=== PATIENT | male | born 1990 | race Caucasian/White ===

== ENCOUNTER 2019-08-10 08:32 | Observation (INO) | payer MEDICAID, OTHER ==
[~2019-08-10] VITALS: Ht 180.3 cm; Wt 153.5 kg
[2019-08-10] MEDS ORDERED: NS 1,000 ML IV SCH (09:00)
[2019-08-10] MEDS ORDERED: PIPERACILLIN/TAZOBACTAM SOD 3.375 GM in D5W MINI-BAG PLUS 50 ML IV ONE (09:00)
--- NOTE | 2019-08-10 09:38 | REP ---
Clinical: Right upper quadrant pain. Possible cholecystitis. Technique: Real time jordan scale ultrasound examination using curved array transducer. Note: Examination is markedly limited due to body habitus and associated technical factors. Findings: The liver suggests fatty infiltration without obvious focal hepatic lesion identified. Pancreas is incompletely evaluated but visualized portions appear grossly normal. Gallbladder demonstrates cholelithiasis and mild wall thickening cannot be excluded. Evaluation is severely limited. No obvious biliary ductal dilatation is appreciated and the common bile duct is poorly identified. The right kidney is normal in reniform shape without hydronephrosis and measures 10.4 x 6.6 x 6.8 cm. No obvious ascites in the visualized right upper quadrant. Impression: Extremely limited examination demonstrating cholelithiasis and hepatic steatosis. Acute cholecystitis cannot be excluded based on current examination. Electronically Signed by Nelson Kim MD 08/10/2019 09:30 A
[2019-08-10 09:56] LABS: BASO % 0.3 % (0.0-1.0); EOS # 0.1 10^3/uL (0.0-0.5); EOS % 0.7 % (0.0-3.0); HEMATOCRIT 48.5 % (42.0-52.0); HEMOGLOBIN 15.7 g/dl (13.5-17.5); LYMPH # 1.8 10^3/uL (1.5-5.0); LYMPH % 15.9 % (24.0-44.0); MEAN CORPUSCULAR HEMOGLOBIN 28.1 pg (27.0-33.0); MEAN CORPUSCULAR HGB CONC 32.4 g/dl (32.0-36.5); MEAN CORPUSCULAR VOLUME 86.9 fl (80.0-96.0); MONO # 1.2 10^3/uL (0.0-0.8); MONO % 10.8 % (0.0-5.0); NEUTROPHILS # 8.3 10^3/uL (1.5-8.5); NEUTROPHILS % 71.8 % (36.0-66.0); PLATELET COUNT, AUTOMATED 297 10^3/uL (150-450); RED BLOOD COUNT 5.58 10^6/uL (4.30-6.10); WHITE BLOOD COUNT 11.5 10^3/uL (4.0-10.0)
[2019-08-10 10:26] LABS: ALBUMIN 3.7 GM/DL (3.2-5.2); BILIRUBIN,DIRECT 0.3 MG/DL (0.0-0.2); BILIRUBIN,TOTAL 0.6 MG/DL (0.2-1.0); TOTAL PROTEIN 7.3 GM/DL (6.4-8.2)
[2019-08-10] MEDS ORDERED: MORPHINE 2 MG/ML 1ML VIAL (J2270) IV PRN ×2 (10:30)
[2019-08-10] MEDS ORDERED: PERCOCET 5MG/325MG TAB PO PRN (10:30)
[2019-08-10] MEDS ORDERED: ONDANSETRON 4MG/2ML VIAL (J2405) IV PRN (10:30)
[2019-08-10 11:40] VITALS: BP 162/89
[2019-08-10] MEDS: KETOROLAC 30 MG/ML VIAL (J1885) IV SCH ×4 (12:15→22:57)
[2019-08-10] MEDS: PANTOPRAZOLE 40MG INJ (PROTONIX) (C9113) IV SCH (12:18)
[2019-08-10] MEDS: NS 1,000 ML IV SCH ×2 (12:18→18:29)
[2019-08-10 13:51] VITALS: BP 159/92
[2019-08-10] MEDS: PIPERACILLIN/TAZOBACTAM SOD 3.375 GM in D5W MINI-BAG PLUS 50 ML IV SCH ×2 (15:01→22:56)
[2019-08-10] MEDS: NICOTINE 21MG/24HR 1 EA TRANSDERMAL TD SCH (15:02)
[2019-08-10 18:00] VITALS: BP 155/87
[2019-08-10 22:00] VITALS: BP 149/82
[2019-08-11 02:00] VITALS: BP 148/82
[2019-08-11] MEDS: NS 1,000 ML IV SCH (02:41)
[2019-08-11] MEDS: PIPERACILLIN/TAZOBACTAM SOD 3.375 GM in D5W MINI-BAG PLUS 50 ML IV SCH ×2 (04:32→10:01)
[2019-08-11] MEDS: KETOROLAC 30 MG/ML VIAL (J1885) IV SCH ×2 (04:32→10:01)
[2019-08-11 06:00] VITALS: BP 141/91
[2019-08-11 06:56] LABS: HEMATOCRIT 45.5 % (42.0-52.0); HEMOGLOBIN 14.4 g/dl (13.5-17.5); MEAN CORPUSCULAR HEMOGLOBIN 27.8 pg (27.0-33.0); MEAN CORPUSCULAR HGB CONC 31.6 g/dl (32.0-36.5); MEAN CORPUSCULAR VOLUME 87.8 fl (80.0-96.0); PLATELET COUNT, AUTOMATED 276 10^3/uL (150-450); RED BLOOD COUNT 5.18 10^6/uL (4.30-6.10); WHITE BLOOD COUNT 7.7 10^3/uL (4.0-10.0)
[2019-08-11 07:20] LABS: ALBUMIN 3.3 GM/DL (3.2-5.2); ALT/SGPT 83 U/L (12-78); BILIRUBIN,TOTAL 0.8 MG/DL (0.2-1.0); BLOOD UREA NITROGEN 8 MG/DL (7-18); CALCIUM LEVEL 8.4 MG/DL (8.5-10.1); CARBON DIOXIDE LEVEL 28 MEQ/L (21-32); CHLORIDE LEVEL 108 MEQ/L (98-107); CREATININE FOR GFR 0.93 MG/DL (0.70-1.30); GLOMERULAR FILTRATION RATE > 60.0 (>60); GLUCOSE, FASTING 83 MG/DL (70-100); POTASSIUM SERUM 3.7 MEQ/L (3.5-5.1); SODIUM LEVEL 141 MEQ/L (136-145); TOTAL PROTEIN 7.2 GM/DL (6.4-8.2)
[2019-08-11] MEDS: PANTOPRAZOLE 40MG INJ (PROTONIX) (C9113) IV SCH (08:25)
[2019-08-11] MEDS: NICOTINE 21MG/24HR 1 EA TRANSDERMAL TD SCH (08:26)
[2019-08-11 14:00] VITALS: BP 148/80
[2019-08-11] MEDS ORDERED: AUGM500T34 PO (15:56)
[2019-08-11] MEDS ORDERED: PERCOCET PO (15:57)
[2019-08-12] MEDS ORDERED: INFLUENZA QUADRIVALENT PF VACCINE 0.5ML SYRINGE (90686) IM ONE (09:00)
== END 2019-08-11 16:19 | disposition home or self-care (01) ==
LOC: M ED 08:32 → M ED INP 08:33 → M MSPAV 11:36
PROVIDERS: ADMIT Surgery; ATTEND Surgery
DX: K81.0 Acute cholecystitis (principal); J45.909 Unspecified asthma, uncomplicated; F17.210 Nicotine dependence, cigarettes, uncomplicated
CPT/HCPCS: 36415; 76705; 80053; 80076; 83690; 85025; 85027; 87040; 96361; 96365; 96366; 96375; 96376; 99284; C9113; J1885; J2543

== ENCOUNTER 2019-09-06 05:56 | Day surgery (SDC) | payer OTHER ==
[2019-09-06] VITALS (11 sets, daily range): BP systolic 140–220; BP diastolic 60–118
[~2019-09-06] VITALS: Ht 162.6 cm; Wt 153.4 kg
[~2019-09-06 05:56] MED LIST: AUGM500T34 PO; PERCOCET PO; VENTAER INH
[2019-09-06] MEDS ORDERED: ceFAZolin SOD 2 GM in IV 1 EA IV ONE (06:00)
[2019-09-06] MEDS ORDERED: ceFAZolin 2 GM/D5W 50 ML IV BAG (J0690 PER 500MG) As Ordered ONE (06:24)
[2019-09-06] MEDS ORDERED: LR 1,000 ML IV ONE (06:45)
[2019-09-06] MEDS ORDERED: BUPIVACAINE/EPIN 0.25% 30 ML VIAL As Ordered ONE (07:10)
[2019-09-06] MEDS ORDERED: CONRAY-60 60% 50ML VIAL (Q9961) As Ordered ONE (07:10)
[2019-09-06] MEDS ORDERED: GLUCAGON FOR INJ 1 MG VIAL (J1610) As Ordered ONE (07:12)
[2019-09-06] MEDS ORDERED: PROPOFOL 200 MG/20 ML VIAL As Ordered ONE (07:16)
[2019-09-06] MEDS ORDERED: ROCURONIUM BROMIDE 50 MG/5 ML VIAL As Ordered ONE ×2 (07:16→08:00)
[2019-09-06] MEDS ORDERED: SUCCINYLCHOLINE 100 MG/5 ML SYRINGE (J0330) As Ordered ONE (07:16)
[2019-09-06] MEDS ORDERED: LIDOCAINE 2% INJ 100 MG/5 ML SDV (FOR ANES.) As Ordered ONE (07:16)
[2019-09-06] MEDS ORDERED: MIDAZOLAM INJ 2 MG/2 ML VIAL (J2250) As Ordered ONE (07:16)
[2019-09-06] MEDS ORDERED: ONDANSETRON 4MG/2ML VIAL (J2405) As Ordered ONE (07:17)
[2019-09-06] MEDS ORDERED: dexameTHASONE 4 MG/ML 1ML VIAL (J1100) As Ordered ONE (07:17)
[2019-09-06] MEDS ORDERED: fentaNYL 100 MCG/2 ML INJECTION (J3010) As Ordered ONE ×2 (07:17→07:48)
[2019-09-06] MEDS ORDERED: ACETAMINOPHEN 1000MG 100ML IV BTL (OFIRMEV) (J0131 PER 10MG) As Ordered ONE (08:06)
[2019-09-06] MEDS ORDERED: SUGAMMADEX SODIUM 500 MG/5 ML VIAL (BRIDION) As Ordered ONE (08:07)
[2019-09-06] MEDS ORDERED: HYDROmorphone HCL 2 MG/ML 1ML VIAL (J1170) As Ordered ONE (09:07)
[2019-09-06] MEDS: NS 1,000 ML IV SCH ×2 (09:45→17:45)
[2019-09-06] MEDS ORDERED: NORCO, ANEXSIA 5/325MG TABLET (HYDROcodone/ACETAMINOPHEN) PO PRN ×2 (09:45)
[2019-09-06] MEDS ORDERED: MORPHINE 2 MG/ML 1ML VIAL (J2270) IV PRN (09:45)
--- NOTE | 2019-09-06 10:04 | RO ---
DATE OF PROCEDURE: 09/06/2019 PREOPERATIVE DIAGNOSIS: Acute cholecystitis. POSTOPERATIVE DIAGNOSIS: Acute cholecystitis. PROCEDURE: Laparoscopic cholecystectomy. SURGEON: Kartik Moreno MD DROP WIRE OPERATOR: Herbie Mix DO ANESTHESIA: General endotracheal anesthesia. ESTIMATED BLOOD LOSS: Minimal. FLUIDS: Crystalloid. BRIEF PROCEDURE SUMMARY: The patient was brought to the operating room and was given general anesthesia. After adequate anesthesia and preoperative antibiotics were given, the patient was prepped and draped in the usual sterile fashion. Next, a supraumbilical incision was made with skin knife. Blunt dissection was carried down to fascia. Fascia was entered with a Veress needle, insufflated to 15 mm of pressure. A dilating 10 mm trocar was placed at this time and under direct visualization an epigastric and two lateral trocars were placed. Given his morbid obesity, he did need to be placed in a significantly head-up left side down position and eventually I was able to see the mildly contracted gallbladder with thickened molina and it was grasped, retracted superiorly and then dissection of the peritoneum off the neck of the gallbladder was performed without too much difficulty. There were some minimal inflammatory changes but overall a good window behind the neck of the gallbladder was created. The cystic duct was relatively small in size and the cystic artery could be seen. There was a large cystic duct node present and once this was immobilized and a good window behind the neck of the gallbladder a critical view of safety was obtained with dissection up on the cystic plate in this area. The cystic artery was clipped proximally and distally and transected. There was some mild oozing from the cystic duct node that was controlled with a clip as well. Next, the cystic duct was clipped proximally and distally and transected. The gallbladder then was removed from the gallbladder bed all way up to the dome, and up at the dome there was some thickening in the liver bed and the plane between the two start to get very difficult. Thus, I started a top down approach just at the very end and there was fibrosis between the gallbladder and the liver bed in this area and what I felt was probably some stones just underneath the surface. My concern was that the patient probably had perforated the dome of the gallbladder and there may be a small abscess cavity under this. In any case, after dissecting further and slowly circumferentially after transecting what I thought was the dome of the gallbladder, possibly the connection between the abscess cavity and the dome, the stones came out and there were approximately three facet stones that came out. This was irrigated and the irrigation was clear. No further stones, and then bile started coming out of this opening that was very close to the liver edge, approximately an inch and a half from the liver edge itself, possibly up to 2 inches at most. But in any case this was irrigated again. No further stones were obtained and I was able to palpate the area and it did not reveal anymore further stones but there was some bile still coming out. Because of this Dr. Mix scrubbed in to give me a hand at this point and our concern was one of two possibilities, possibly a Duct of Luschka but it did not make sense with the stones that were within this cavity. The other was possibly an abscess that eroded into a small bile duct given that there was not a lot of bile coming out but it did come out as fresh looking bile. Thus, two stitches were used with #2-0 Vicryl to approximate the edges of this opening and I did not see any further bile leak despite pressing on the undersurface of this. Then, I placed some Tisseel over the top of this and left a 19 Eric-Perera drain in the right side of the abdomen and brought the gallbladder out in Endo Catch bag. The gallbladder itself was relatively large, so the umbilical incision needed be enlarged for this and this was closed first with #0 Vicryl in the fascial layer and then using a Jasen-Palacio to supplement the closure at the site I used that as a mjqjim-ed-dyhmw as well. Good hemostasis was achieved and all incisions were closed with #4-0 Vicryl. Steri-Strips and a dry sterile dressing was applied. The patient was awakened from his anesthesia, brought to the recovery room awake, alert and hemodynamically stable. Sponge and needle counts correct times two.
[2019-09-06] MEDS ORDERED: MORPHINE 10 MG/ML 1ML VIAL (J2270) As Ordered ONE (10:08)
[2019-09-06] MEDS ORDERED: PERCOCET 5MG/325MG TAB As Ordered ONE (10:08)
[2019-09-06] MEDS: PERCOCET 5MG/325MG TAB PO PRN ×2 (10:10→10:40)
[2019-09-06] MEDS: MORPHINE 10 MG/ML 1ML VIAL (J2270) IV PRN ×4 (10:15→10:30)
[2019-09-06] MEDS ORDERED: METOCLOPRAMIDE INJ 10MG/2ML VIAL (J2765) IV PRN (10:15)
[2019-09-06] MEDS ORDERED: ONDANSETRON 4MG/2ML VIAL (J2405) IV PRN (10:15)
[2019-09-06] MEDS ORDERED: LR 1,000 ML IV SCH (10:15)
[2019-09-06] MEDS: hydrALAZINE INJ 20 MG/ML VIAL IV SCH ×2 (10:30→10:40)
[2019-09-06] MEDS ORDERED: hydrALAZINE INJ 20 MG/ML VIAL As Ordered ONE (10:30)
[2019-09-06] MEDS: LABETALOL HCL 100 MG/20 ML VIAL IV SCH ×5 (10:50→11:20)
[2019-09-06] MEDS ORDERED: LABETALOL HCL 100 MG/20 ML VIAL As Ordered ONE (10:51)
[2019-09-06] MEDS: fentaNYL 100 MCG/2 ML INJECTION (J3010) IV PRN ×4 (10:55→11:10)
[2019-09-06] MEDS ORDERED: LABETALOL 100 MG TAB PO SCH ×2 (14:00→16:15)
[2019-09-06] MEDS ORDERED: NITROGLYCERIN 2% OINT 1 GM *U/D* PKT TOP STA (15:44)
[2019-09-06] MEDS ORDERED: PILL CUTTER 1 EACH XX PRN (16:15)
[2019-09-06] MEDS: PANTOPRAZOLE 40MG TAB (PROTONIX) PO SCH (16:44)
[2019-09-06] MEDS: MORPHINE 30 MG TAB **MSIR PO SCH ×2 (16:55→18:00)
[2019-09-06] MEDS: PIPERACILLIN/TAZOBACTAM SOD 3.375 GM in D5W MINI-BAG PLUS 50 ML IV SCH ×2 (16:56→21:22)
[2019-09-06] MEDS ORDERED: **hydrALAZINE HCL** 25 MG TAB PO SCH (19:00)
--- NOTE | 2019-09-06 19:43 | HPEPDOC ---
General Date of Admission 09/06/2019 Date of Service: Sep 06, 2019 Attending Physician: MADHAVI CHAPPELL MD Chief Complaint The patient is a 28-year-old male admitted with a reason for visit of Gallstones. Source: Patient Exam Limitations: No limitations Timing/Duration: Day(s) Severity: Moderate Associated Symptoms: Other (abdominal pain) History of Present Illness 28 yo morbidly obese man with a known history of hypertension not on medications with poor medical compliance who was admitted by surgery for cholecystectomy and medicine was consulted post op of medical management. On meeting Mr. Palacio, he reports 4/10 pain and has already ambulated and feels well, sitting at bedside and breathing comfortably on room air. He reports having previously been told that he has hypertension was placed on hydralazine with plan to follow up with a PCP but he never followed up. His BPs per his memory have ranged from SBP 150-200s. He reports no history of chest pain, palpitations, headaches, blurry vision, asymmetric weakness. He otherwise had a lap tawnya today that was uneventful except for critical hypertension for which he received hydralazine and labetalol with good effect. Post op he has done well and arrival to the floor he was hypertensive to the 180s without any complaints. I gave 50mg of labetalol PO with no effect and on recheck he is now in the low 200s SBP. I am now increasing his labetalol to 100 Q6H and hydralazine 25Q6 as well staggered and transferring him to the ICU with telemetry. He otherwise reports that his pain remains well controlled and on smoking cessation counseling agreed to a patch. He otherwise remains on zosyn per surgery team, s/p pre-surgery ancef. Home Medications Scheduled PRN Albuterol Sulfate (Ventolin Hfa) 18 Gm Hfa.aer.ad, 2 PUFF INH Q4-6HP PRN for wheezing, (Reported) Oxycodone/Acetaminophen (Oxycodone-Acetaminophen 5-325) 1 Each Tablet, 1 TAB PO Q4H PRN for MILD/MODERATE PAIN (PS 1-7) Allergies Coded Allergies: No Known Drug Allergies (Verified Allergy, Unknown, 09/06/19) Past Medical History Medical History Hypertension Surgical History Now s/p lap tawnya Family History Significant Family History: No pertinent family hx Social History * Smoker: current smoker Alcohol: occationally Drugs: denies Recent Travel/Sick Contacts: Denies: Recent travel, Recent sick contacts Psychosocial History: No pertinent psych hx Recently relocated back to [facility] from [place]. A-FIB/CHADSVASC A-FIB History Current/History of A-Fib/PAF?: No Current PO Anticoag Therapy: No Age/Risk Factor Scoring CHADSVASC: CHADSVASC Response (Comments) Value Age Risk Factor Age < 65 years old 0 Gender Risk Factor Male 0 Hx of CHF No 0 Hx of HTN Yes 1 Hx of Stroke/TIA/or VTE No 0 Hx of Diabetes No 0 Hx of Vascular Disease No 0 Total 1 Treatment Treatment ordered: NONE Reason Anticoagulant not given: Not indicated/Eswzy5izef Review of Systems Constitutional: Denies: Chills, Fever, Night Sweats Eyes: Denies: Pain, Vision change ENT: Denies: Head Aches, Ear Pain, Dysphagia Skin: Denies: Rash, Lesions, Breakdown Pulmonary: Denies: Dyspnea, Cough Cardiovascular: Denies: Chest Pain, Palpitations, Orthopnea, Paroxysmal Noc. Dyspnea, Lt Headedness Gastrointestinal: Denies: Nausea, Vomiting, Abdominal Pain, Diarrhea Genitourinary: Denies: Dysuria, Frequency, Incontinence, Retention Hematologic: Denies: Bruising, Bleeding Excessively Endocrine: Denies: Polydipsia, Polyphagia, Polyuria, Heat Intolerance, Cold Int olerance, Other Endocrine Sx Musculoskeletal: Denies: Neck Pain, Back Pain, Joint Pain, Muscle Pain, Spasms Neurological: Denies: Weakness, Numbness, Change in speech, Confusion Psych: Reports: Mood Normal; Denies: Depression, Memory Issues Physical Examination General Exam: Positive: Alert, No Acute Distress Eye Exam: Positive: PERRLA, Conjunctiva & lids normal, EOMI; Negative: Sclera icteric ENT Exam: Positive: Atraumatic, Mucous membr. moist/pink, Pharynx Normal Neck Exam: Positive: Supple; Negative: JVD, thyromegaly Chest Exam: Positive: Clear to auscultation, Normal air movement Heart Exam: Positive: Rate Normal, Regular Rhythm, Normal S1, Normal S2; Negative: Murmurs, Rubs Abdomen Exam: Positive: Normal bowel sounds, Soft, Tenderness (mild abdominal tenderness to palpation but otherwise benign exam postop); Negative: Hepatospenomegaly Extremity Exam: Positive: Normal pulses; Negative: Clubbing, Cyanosis, Edema Skin Exam: Positive: Nl turgor and temperature; Negative: Breakdown, Lesion Neuro Exam: Positive: Normal Gait, Normal Speech, Cranial Nerves 3-12 NL, Reflexes 2+ Psych Exam: Positive: Mental status NL, Mood NL, Oriented x 3 Vital Signs Vital Signs Date Time Temp Pulse Resp B/P (MAP) Pulse Ox O2 Delivery O2 Flow Rate FiO2 09/06/19 18:30 98.5 81 15 200/110 (140) 95 Room Air 09/06/19 11:35 2 Assessment/Plan 28 yo man with untreated hypertension who was admitted for a lap tawnya with a course c/b hypertensive urgency now being transferred to the PCU. Hypertensive urgency: -Has adequate pain control per surgery team -stopped fluids at this time -will place on labetalol 100Q6H staggered with hydral 25Q6 -will need outpatient secondary hypertension work up after establishing a PCP -telemetry Post lap tawnya management: -Pain is well controlled per surgery plan with no complaints at this time, reduced his morphine from 30Q6 to 10Q6 IR, kept all else the same -Placed on zosyn per surgery Dispo: PCU for hypertensive urgency - Plan / VTE VTE Prophylaxis Ordered?: Yes VTE Exclusion Mechanical Proph: Other VTE Exclusion Pharmacological: At Low Risk for VTE MADHAVI CHAPPELL MD Sep 06, 2019 19:43
[2019-09-06] MEDS ORDERED: LABETALOL 100 MG TAB PO ONE (20:00)
[2019-09-06] MEDS: NICOTINE 14 MG/24 HR TRANSDERMAL TD SCH (21:22)
[2019-09-07] MEDS: MORPHINE SULFATE ORAL SOLN 10 MG/5 ML UD PO SCH ×3 (00:12→12:12)
[2019-09-07] MEDS ORDERED: LABETALOL 100 MG TAB PO ONE (01:00)
[2019-09-07] MEDS: PIPERACILLIN/TAZOBACTAM SOD 3.375 GM in D5W MINI-BAG PLUS 50 ML IV SCH ×3 (02:12→14:00)
[2019-09-07 05:39] LABS: HEMATOCRIT 44.9 % (42.0-52.0); HEMOGLOBIN 14.4 g/dl (13.5-17.5); MEAN CORPUSCULAR HEMOGLOBIN 27.6 pg (27.0-33.0); MEAN CORPUSCULAR HGB CONC 32.1 g/dl (32.0-36.5); MEAN CORPUSCULAR VOLUME 86.2 fl (80.0-96.0); PLATELET COUNT, AUTOMATED 308 10^3/uL (150-450); RED BLOOD COUNT 5.21 10^6/uL (4.30-6.10); WHITE BLOOD COUNT 16.6 10^3/uL (4.0-10.0)
[2019-09-07] MEDS ORDERED: LABETALOL 100 MG TAB PO SCH (06:00)
[2019-09-07 06:03] LABS: ALBUMIN 3.4 GM/DL (3.2-5.2); ALT/SGPT 175 U/L (12-78); BILIRUBIN,TOTAL 0.9 MG/DL (0.2-1.0); BLOOD UREA NITROGEN 6 MG/DL (7-18); CALCIUM LEVEL 8.7 MG/DL (8.5-10.1); CARBON DIOXIDE LEVEL 28 MEQ/L (21-32); CHLORIDE LEVEL 106 MEQ/L (98-107); CREATININE FOR GFR 0.86 MG/DL (0.70-1.30); GLOMERULAR FILTRATION RATE > 60.0 (>60); GLUCOSE, FASTING 110 MG/DL (70-100); POTASSIUM SERUM 3.8 MEQ/L (3.5-5.1); SODIUM LEVEL 140 MEQ/L (136-145); TOTAL PROTEIN 7.5 GM/DL (6.4-8.2)
[2019-09-07 07:51] VITALS: BP 148/88
[2019-09-07] MEDS ORDERED: SLF 3 ML SYR IV PRN (08:30)
[2019-09-07 08:45] VITALS: BP 148/88
[2019-09-07] MEDS: PANTOPRAZOLE 40MG TAB (PROTONIX) PO SCH (08:45)
[2019-09-07] MEDS: NICOTINE 14 MG/24 HR TRANSDERMAL TD SCH (08:45)
[2019-09-07] MEDS ORDERED: LISINOPRIL 20 MG TAB PO SCH (09:00)
--- NOTE | 2019-09-07 10:36 | IPN ---
DATE: 09/07/2019 The patient overall is doing well from his surgical standpoint. His Eric-Perera (MARIAJOSE) drain is just putting out a little serosanguineous and overall feeling well from that standpoint and from a pain discomfort standpoint. His blood pressure was significantly elevated yesterday and he was seen by medicine and they felt that his blood pressure was significantly elevated enough that they wanted him to go to the progressive care unit (PCU) to be watched. He has been watched overnight and now at this point from a surgical standpoint can be discharged to home. He has been afebrile. His vital signs have been stable and overall he has been tolerating a regular diet. IMPRESSION AND PLAN: From a surgical standpoint, the patient can be discharged home. His major issue was that he had, what to me and Dr. Mix when we looked at the undersurface of liver, what we felt was probably had a posterior perforation of his gallbladder into the liver bed and then may have eroded into one of the smaller bile ducts. In any case, we closed that up with sutures and then put some Tisseel over the top of the opening and it was clean and dry and overall looked good and covered nicely and the MARIAJOSE drainage is serosanguineous. I feel to be on the safe side, we probably should keep the MARIAJOSE drain in and then I will see him next Thursday and will get it out. He understands our current plan and will await medicine's input whether he can be discharged to home or not.
[2019-09-07 12:00] VITALS: BP 146/88
[2019-09-07] MEDS ORDERED: **hydrALAZINE HCL** 25 MG TAB PO PRN (12:00)
[2019-09-07] MEDS ORDERED: LISI-538 PO (12:40)
[2019-09-07] MEDS ORDERED: SLF 3 ML SYR IV SCH (14:00)
--- NOTE | 2019-09-07 15:53 | IPNPDOC ---
Text Note Date of Service The patient was seen on 09/07/19. NOTE Subjective: -No issues overnight -Mild abdominal pain well controlled on current pain regimen Interim events: -Continues to have asymptomatic hypertensive urgency and was placed on hydral/labetalol overnight to start lisinopril this morning -Transferred to PCU for hypertensive urgency Objective: Vitals: See below General: Morbidly obese young man, NAD, sitting at bedside, conversational HEENT: NCAT, anicteric, PERRLA, EOMI, MMM Pulm: CTAB and breathing comfortably on room air Cardiac: RRR, no mrg Abd: Obese, normoactive sounds, mild discomfort on palpation Ext: WWP, no edema Neuro: grossly nonfocal exam Labs: Leukocytosis to 14.4, transaminitis with AST 103, ALT 175, normal alk phos, total bili and Cr. Reviewed. Assessment: 28 yo man with untreated hypertension who was admitted by surgery now s/p a lap tawnya with a course c/b hypertensive urgency now being transferred to the PCU. Hypertensive urgency: -Has adequate pain control per surgery team -was placed on labetalol 100Q6H staggered with hydral 25Q6 for overnight management, and now switching to lisinopril 20mg daily -will need outpatient secondary hypertension work up after establishing a PCP Post lap tawnya management: -Pain is well controlled per surgery plan with no complaints at this time, reduced his morphine from 30Q6 to 10Q6 IR, kept all else the same -Placed on zosyn per surgery Leukocytosis s/p lap tawnya, afebrile and hemodynamically stable: -presumed reactive to surgery with nonfocal examination and afebrile, with close surgery follow up on thursday. Smoking: -continued nicotine patch while inpatient and declined outpatient script at this time, but will seriously consider quitting Dispo: Home with lisinopril 20 daily for HTN and PCP establishment at discharge, with surgery follow up on Thursday. VS,Fishbone, I+O VS, Fishbone, I+O Laboratory Tests 09/07/19 05:22 Vital Signs Date Time Temp Pulse Resp B/P (MAP) Pulse Ox O2 Delivery O2 Flow Rate FiO2 09/07/19 07:51 98.1 77 18 148/88 (108) 96 Room Air 09/06/19 11:35 2 I&O- Last 24 Hours up to 6 AM 09/07/19 05:59 Intake Total 2460 ml Output Total 425 ml Balance 2035 ml MADHAVI CHAPPELL MD Sep 07, 2019 08:27
== END 2019-09-07 14:19 | disposition home or self-care (01) ==
LOC: M SDC 05:56 → M MSPAV 14:51 → M PCU 20:20 → M SDC 09-07 14:19
PROVIDERS: ATTEND Surgery
DX: K80.10 Calculus of gallbladder with chronic cholecystitis without obstruction (principal); I10 Essential (primary) hypertension; D72.829 Elevated white blood cell count, unspecified; E66.01 Morbid (severe) obesity due to excess calories; K21.9 Gastro-esophageal reflux disease without esophagitis; J45.909 Unspecified asthma, uncomplicated; F17.210 Nicotine dependence, cigarettes, uncomplicated; Z68.41 Body mass index [BMI] 40.0-44.9, adult